=== PATIENT | female | born 1980 | race Two or more races ===

== ENCOUNTER 2018-04-21 17:47 | Inpatient (IN) | payer OTHER ==
[~2018-04-21] VITALS: Ht 170.2 cm; Wt 74.6 kg
[~2018-04-21 17:47] MED LIST: ADVAIR 250/501 DISK IH; ADVAIR HFA120 INHAL1 IH; ALBUTEROL SULF8.5 GM IH; ALBUTEROL17 GM IH; ALBUTEROL2.5 MG/3 M; ALBUTEROL2.5 MG/3 M IH; Advair HFA 230/21 IH; BENZONATATE100 MG PO; CEFTIN500 MG PO; DELTASONE20 M1 PO; DOXYCYCLINE HY100 M3 PO; GABAPENTIN100 MG PO; HYCODAN PO; HYCODAN SYRUP480 ML PO; LEVOFLOXACIN750 MG PO; MONTELUKAST SOD10 MG PO; NAPROSYN500 MG PO; NORCO 7.5/321 TABLET PO; PREDNISONE10 MG PO; PREDNISONE20 MG PO; PRENAPLUS TABL1 EACH PO; PRENATABS FA T1 EACH PO; PRENATABS RX T1 EACH PO; PROAIR HFA8.5 GM IH; PROVENTIL,2.5 MG/3 M IH; PULMICORT FLEX90 MCG IH; PULMICORT0.5 MG/21; Proventil,Ventolin H IH; ROBITUSSIN AC,T10 ML PO; SINGULAIR10 MG; SPIRIVA RESPIMAT4 GM IH; SUBOXONE 8 MG-1 EAC2 SL; TYLENOL COLD PO; TYLENOL REGULA325 MG PO; VENTOLIN HFA18 GM IH; predniSONE PO
[2018-04-21 19:42] LABS: HEMATOCRIT 35.6 % (36.0-46.0); HEMOGLOBIN 12.1 G/DL (11.9-15.5); MCV 88.1 FL (83-99); PLATELET COUNT 207 K/uL (156-360); RBC DIS.WIDTH-CV 13.1 % (11.8-14.6); RBC DIS.WIDTH-SD 42.8 % (39-53); RED BLOOD COUNT 4.04 M/uL (3.80-5.20); WHITE BLOOD COUNT 8.4 K/uL (4.1-10.2)
[2018-04-21 19:53] LABS: ALBUMIN 3.8 g/dL (3.2-4.8); CHLORIDE 106 mEq/L (99-109); POTASSIUM 3.9 mEq/L (3.7-5.4); SODIUM 139 mEq/L (136-147)
[2018-04-21 19:55] LABS: GLUCOSE 101 mg/dL (70-99); TOTAL PROTEIN 6.6 g/dL (6.4-8.3)
[2018-04-21] MEDS ORDERED: EXCEDRIN MIGRA1 EAC3 PO (19:56)
[2018-04-21 19:57] LABS: TOTAL BILIRUBIN 0.3 mg/dL (0.0-1.0)
[2018-04-21 19:59] LABS: ALKALINE PHOSPHATASE 83 IU/L (3-129); CREATININE 0.8 mg/dL (0.6-1.3); GFR ESTIMATE (CALCULATED) > 59 mL/min/
[2018-04-21 20:00] LABS: UREA NITROGEN (BUN) 9 mg/dL (9-23)
[2018-04-21 20:01] LABS: AST (GOT) 15 IU/L (2-34)
[2018-04-21 20:02] LABS: ALT (GPT) 16 IU/L (3-49)
[2018-04-21 23:30] VITALS: BP 125/91
[2018-04-22 04:19] VITALS: BP 116/74
[2018-04-22 07:24] VITALS: BP 160/105
[2018-04-22 11:14] VITALS: BP 15/101; BP 155/101
[2018-04-22 15:17] VITALS: BP 153/55
[2018-04-22 19:29] VITALS: BP 152/78
[2018-04-22 23:55] VITALS: BP 136/72
[2018-04-23 04:24] VITALS: BP 132/64
[2018-04-23 06:53] LABS: BASOPHIL (%) 0.1 % (0-1); EOSINOPHIL (%) 0 % (0-5); HEMATOCRIT 40.3 % (36.0-46.0); HEMOGLOBIN 13.1 G/DL (11.9-15.5); IMMATURE GRANULOCYTE (%) 0.6 % (0.0-0.7); LYMPHOCYTE COUNT 1.5 K/uL (1.0-2.8); MCH 28.7 PG (29.0-34.0); MCHC 32.5 G/DL (30.0-36.0); MCV 88.2 FL (83-99); MONOCYTE (%) 2.4 % (3-12); MONOCYTE COUNT 0.5 K/uL (0-0.8); NEUTROPHIL (%) 89.9 % (45-76); NEUTROPHIL COUNT 19.3 K/uL (1.8-6.4); RBC DIS.WIDTH-CV 13.2 % (11.8-14.6); RBC DIS.WIDTH-SD 43.1 % (39-53); RED BLOOD COUNT 4.57 M/uL (3.80-5.20); WHITE BLOOD COUNT 21.4 K/uL (4.1-10.2)
[2018-04-23 07:00] LABS: PLATELET COUNT 277 K/uL (156-360)
[2018-04-23 07:15] LABS: ALKALINE PHOSPHATASE 83 IU/L (3-129); ALT (GPT) 21 IU/L (3-49); AST (GOT) 18 IU/L (2-34); CHLORIDE 106 MEQ/L (99-109); CREATININE 0.9 MG/DL (0.6-1.3); GFR ESTIMATE (CALCULATED) > 59 mL/min/; POTASSIUM 4.2 MEQ/L (3.7-5.4); SODIUM 139 MEQ/L (136-147); TOTAL BILIRUBIN 0.3 MG/DL (0.0-1.0); TOTAL PROTEIN 7.4 G/DL (6.4-8.3); UREA NITROGEN (BUN) 15 mg/dL (9-23)
[2018-04-23 07:23] LABS: GLUCOSE 152 mg/dL (70-99)
[2018-04-23 08:23] VITALS: BP 136/96
[2018-04-23 11:50] VITALS: BP 146/96
[2018-04-23 16:21] VITALS: BP 134/90
[2018-04-23 19:26] VITALS: BP 140/80
[2018-04-24] VITALS (7 sets, daily range): BP systolic 124–163; BP diastolic 75–93
[2018-04-25] VITALS (8 sets, daily range): BP systolic 140–180; BP diastolic 86–104
[2018-04-26] VITALS (10 sets, daily range): BP systolic 124–164; BP diastolic 74–103
[2018-04-26 06:15] LABS: HEMATOCRIT 37.6 % (36.0-46.0); HEMOGLOBIN 12.2 G/DL (11.9-15.5); MCH 28.6 PG (29.0-34.0); MCHC 32.4 G/DL (30.0-36.0); MCV 88.1 FL (83-99); PLATELET COUNT 210 K/uL (156-360); RBC DIS.WIDTH-CV 13.2 % (11.8-14.6); RBC DIS.WIDTH-SD 42.6 % (39-53); RED BLOOD COUNT 4.27 M/uL (3.80-5.20); WHITE BLOOD COUNT 8.6 K/uL (4.1-10.2)
[2018-04-27 03:34] VITALS: BP 124/82
[2018-04-27 07:23] VITALS: BP 134/88
[2018-04-27 15:13] VITALS: BP 119/78
[2018-04-27 23:21] VITALS: BP 142/71
[2018-04-28 07:20] VITALS: BP 138/102
[2018-04-28] MEDS ORDERED: MONTELUKAST SOD10 MG PO (10:25)
[2018-04-28] MEDS ORDERED: DOXYCYCLINE HY100 M3 PO (10:25)
[2018-04-28] MEDS ORDERED: SPIRIVA RESPIMAT4 GM IH (10:25)
[2018-04-28] MEDS ORDERED: PREDNISONE20 MG PO (10:25)
[2018-04-28] MEDS ORDERED: LISINOPRIL-HCT1 EAC3 PO (10:25)
[2018-04-28] MEDS ORDERED: HYDROCODONE-HO473 ML PO (10:25)
[2018-04-28] MEDS ORDERED: ALBUTEROL2.5 MG/3 M IH (10:50)
[2018-04-28] MEDS ORDERED: ROBITUSSIN DM118 ML PO (11:01)
[2018-04-28 11:20] VITALS: BP 127/85
== END 2018-04-28 12:24 | disposition home or self-care (01) | DRG 191 ==
LOC: EME 17:47 → EDOF 20:50 → 2EAST 20:50 → ENRESERV 20:58 → 2EAST 23:24
PROVIDERS: Hospitalist; Physician Assistant
DX: J44.1 Chronic obstructive pulmonary disease with (acute) exacerbation (principal); J45.41 Moderate persistent asthma with (acute) exacerbation; J44.0 Chronic obstructive pulmonary disease with (acute) lower respiratory infection; J20.9 Acute bronchitis, unspecified; I10 Essential (primary) hypertension; F41.9 Anxiety disorder, unspecified; T38.0X5A Adverse effect of glucocorticoids and synthetic analogues, initial encounter; M79.7 Fibromyalgia
CPT/HCPCS: 71045; 71046; 80053; 85025; 85027; 87070; 87205; 94640; 94640 76; 94644; 99202; 99281; 99282; G0378; J0360; J0696; J1650; J2930; J3475; J7040; J7512